=== PATIENT | male | born 1970 | race Caucasian/White ===

== ENCOUNTER 2023-01-02 14:46 | Observation (INO) | payer OTHER ==
[2023-01-02] VITALS (19 sets, daily range): BP systolic 117–201; BP diastolic 70–120
[~2023-01-02] VITALS: Ht 165.1 cm; Wt 115.0 kg
[2023-01-02 17:57] LABS: BASO% 0.3 % (0-3); HEMOGLOBIN 15.6 g/dl (14.0-18.0); IMMATURE GRANULOCYTES 0.1 % (0.0-5.0); LYMPH% 15.9 % (15-41); MEAN CELL VOLUME 94.5 fL CALC (80.0-100.0); MEAN CORPUSCULAR HGB 30.7 pG CALC (26.0-32.0); MEAN CORPUSCULAR HGB CONC 32.5 g/dL CAL (32.0-36.0); MONO% 6.7 % (2-13); NEUT# 10.15 thou/uL (1.82-7.42); RED BLOOD COUNT 5.08 mill/uL (4.70-6.10)
[2023-01-02 18:05] LABS: URINE BILIRUBIN - DIPSTICK NEGATIVE (NEGATIVE); URINE BLOOD DIPSTICK NEGATIVE (NEGATIVE); URINE COLOR YELLOW; URINE GLUCOSE - DIPSTICK NEGATIVE (NEGATIVE); URINE KETONE 15 mg/dL (NEGATIVE); URINE LEUK ESTERASE NEGATIVE (NEGATIVE); URINE PH 7.5 (4.5-8.0); URINE PROTEIN - DIPSTICK NEGATIVE (NEG-TRACE); URINE SPECIFIC GRAVITY >=1.030
[2023-01-02 18:06] LABS: URINE NITRITE - DIPSTICK NEGATIVE (Negative)
[2023-01-02 18:12] LABS: ALBUMIN 4.7 g/dL (3.2-5.0); ALKALINE PHOSPHATASE 82 u/l (38-126); ANION GAP 10 (6-22 (CALC)); BILIRUBIN, TOTAL 0.5 mg/dL (0.2-1.3); BUN 18 mg/dL (9-20); BUN/CREATININE RATIO 20 (12-20 (CALC)); CARBON DIOXIDE 29 mmol/l (22-30); CHLORIDE 105 mmol/l (95-108); CREATININE 0.9 mg/dL (0.7-1.3); GFR FOR AFR.AMER. > 60 ML/MIN (>=60 (CALC)); GFR OTHER RACES > 60 ML/MIN (>=60 (CALC)); LIPASE 32 u/l (23-300); POTASSIUM 4.6 mmol/l (3.5-5.1); SGOT/AST 30 u/l (17-59); SODIUM 140 mmol/l (137-146); TOTAL PROTEIN 8.1 g/dL (6.3-8.2)
[2023-01-03 04:00] VITALS: BP 115/76
[2023-01-03 04:04] VITALS: BP 115/76
[2023-01-03] MEDS ORDERED: AMOX/K CLAV875 M1 PO (08:07)
== END 2023-01-03 10:00 | disposition home or self-care (01) | DRG 392 ==
LOC: ED 14:46 → ED-I 21:00 → ED 21:47 → ICU 21:48
PROVIDERS: Nurse Practitioner; ADMIT Surgery; ATTEND Surgery
DX: K57.32 Diverticulitis of large intestine without perforation or abscess without bleeding (principal); K42.0 Umbilical hernia with obstruction, without gangrene; K44.9 Diaphragmatic hernia without obstruction or gangrene
CPT/HCPCS: Q9967